=== PATIENT | male | born 1960 | race Caucasian/White ===

== ENCOUNTER 2017-01-06 13:38 | Inpatient (IN) | payer OTHER ==
[2017-01-06 14:48] VITALS: BMI 25.4
--- NOTE | 2017-01-06 15:13 | HP ---
CIWA Score - CIWA Score Nausea/Vomitin Muscle Tremors: 3 Anxiety: 3 Agitation: 3 Paroxysmal Sweats: 3 Orientation: 0-Oriented Tacttile Disturbances: 2-Mild Itch/Numbness/Burn Auditory Disturbances: 0-None Visual Disturbances: 0-None Headache: 0-None Present CIWA-Ar Total Score: 17 Admission ROS [facility] - HPI Chief Complaint: I need help I have lost everything . Allergies/Adverse Reactions: Allergies Allergy/AdvReac Type Severity Reaction Status Date / Time No Known Allergies Allergy Verified 01/06/17 15:20 History of Present Illness: 56 y/o m pt with a h/o chronic alcoholism seeking detox . Exam Limitations: No Limitations - Ebola screening Have you traveled outside of the country in the last 21 days: No (N) Have you had contact with anyone from an Ebola affected area: No Have you been sick,other than usual withdrawal symptoms: No Do you have a fever: No - Review of Systems Constitutional: Night Sweats, Changes in sleep, Unintentional Wgt. Loss (30lbs x 1 months) EENT: reports: Blurred Vision (uses ccntacts) Respiratory: reports: No Symptoms reported Cardiac: reports: No Symptoms Reported GI: reports: No Symptoms Reported, Nausea : reports: No Symptoms Reported Musculoskeletal: reports: Joint Pain, Muscle Pain Neuro: reports: No Symptoms reported Endocrine: reports: No Symptoms Reported Hematology: reports: No Symptoms Reported Psychiatric: reports: No Sypmtoms Reported Other Systems: Reviewed and Negative Patient History - Patient Medical History Hx Anemia: No Hx Asthma: No Hx Chronic Obstructive Pulmonary Disease (COPD): No Hx Cancer: No Hx Cardiac Disorders: No Hx Congestive Heart Failure: No Hx Hypertension: No Hx Hypercholesterolemia: No Hx Pacemaker: No HX Cerebrovascular Accident: No Hx Seizures: No Hx Dementia: No Hx Diabetes: No Hx Gastrointestinal Disorders: No Hx Liver Disease: No Hx Genitourinary Disorders: No Hx Sexually Transmitted Disorders: No Hx Renal Disease (ESRD): No Hx Thyroid Disease: No Hx Human Immunodeficiency Virus (HIV): No Hx Hepatitis C: Yes (treated 2004- non detectable ) Hx Depression: No Hx Suicide Attempt: No Hx Bipolar Disorder: No Hx Schizophrenia: No - Patient Surgical History Past Surgical History: Yes Hx Abdominal Surgery: Yes (1984- rt hernia repair ) Other Surgical History: 2006- laminectomy - PPD History Documented Results: Negative w/o proof PPD to be Administered?: Yes - Reproductive History Patient is a Female of Child Bearing Age (11 -55 yrs old): No - Smoking Cessation Smoking history: Never smoked Have you smoked in the past 12 months: No Aproximately how many cigarettes per day: 0 Cigars Per Day: 0 Hx Chewing Tobacco Use: No Initiated information on smoking cessation: No 'Breaking Loose' booklet given: 01/06/17 - Substance & Tx. History Hx Alcohol Use: Yes Hx Substance Use: No Substance Use Type: Alcohol Hx Substance Use Treatment: Yes ([facility] ) - Substances Abused Alcohol Route: Oral Frequency: Daily Amount used: vodka 1 qt/d Age of first use: 16 Date of Last Use: 01/06/17 Family Disease History - Family Disease History Family Disease History: Diabetes: Father Admission Physical Exam [facility] - Vital Signs Vital Signs: Vital Signs - 24 hr 01/06/17 14:46 Temperature 97.5 F L Pulse Rate 87 Respiratory 20 Rate Blood Pressure 145/88 - Physical General Appearance: Yes: Appropriately Dressed, Irritable, Anxious HEENTM: Yes: EOMI, Hearing grossly Normal, Normocephalic, Normal Voice, JESSICA Respiratory: Yes: Chest Non-Tender, Lungs Clear, Normal Breath Sounds, No Respiratory Distress Neck: Yes: Supple, Trachea in good position Breast: Yes: Within Normal Limits Cardiology: Yes: Regular Rhythm, Regular Rate, S1, S2 Genitourinary: Yes: Frequency Back: Yes: Decreased Range of Motion, Muscle Spasm Musculoskeletal: Yes: Back pain, Joint Stiffness (left elbow decreased rom , abrasion with d/c), Muscle Pain Extremities: Yes: Tremors Neurological: Yes: bilingual medical receptionist II-XII NML intact, Fully Oriented, Alert, Motor Strength 5/5, Normal Response Integumentary: Yes: Moist Lymphatic: Yes: Within Normal Limits - Diagnostic (1) Alcohol dependence with uncomplicated withdrawal Current Visit: Yes Status: Chronic (2) Chronic low back pain with left-sided sciatica Current Visit: Yes Status: Chronic Qualifiers: Back pain laterality: left Qualified Code(s): M54.42 - Lumbago with sciatica, left side; G89.29 - Other chronic pain (3) Weight loss Current Visit: Yes Status: Acute (4) Abrasion of elbow, left, infected Current Visit: Yes Status: Acute Cleared for Admission [facility] - Detox or Rehab [facility] Level of Care: Medically Managed Detox Regimen/Protocol: Librium [facility] Breath Alcohol Content Breath Alcohol Content: 0.186 Urine Drug Screen - Results Drug Screen Negative: No Urine Drug Screen Results: BZO-Benzodiazepines, TCA-Tricyclic Antidepress
[2017-01-06] MEDS ORDERED: P-EPHED 60MG/TRIPROLIDI 2.5MG TABLET PO PRN (15:33)
[2017-01-06] MEDS ORDERED: MAGNESIUM HYDROX 2400MG/30ML ORAL SUSPENSION 30 ML CUP PO PRN (15:33)
[2017-01-06] MEDS ORDERED: ACETAMINOPHEN 325 MG TABLET (FP) PO PRN (15:33)
[2017-01-06] MEDS ORDERED: MAGNESIUM CITRATE 300 ML BOTTLE PO PRN (15:33)
[2017-01-06] MEDS ORDERED: guaiFENesin/D-METHORPHAN HB 10 ML UNIT-DOSE CUPS PO PRN (15:33)
[2017-01-06] MEDS ORDERED: IBUPROFEN 400 MG TABLET (FP) PO PRN (15:33)
[2017-01-06] MEDS ORDERED: MENTHOL/PHENOL 1 EACH UD MM PRN (15:33)
[2017-01-06] MEDS ORDERED: LOPERAMIDE HCL 2 MG CAPSULE PO PRN (15:33)
[2017-01-06] MEDS ORDERED: chlordiazePOXIDE HCL 25 MG CAPSULE PO ONE (16:30)
[2017-01-06] MEDS: CEPHALEXIN MONOHYDRATE 500 MG CAPSULE (UD) PO SCH ×2 (17:58→23:34)
[2017-01-06] MEDS: chlordiazePOXIDE HCL 25 MG CAPSULE PO PRN (18:04)
[2017-01-06] MEDS: MAG HYDROX/AL HYDROX/SIMETH 30 ML UNIT-DOSE CUP PO PRN (19:13)
[2017-01-06 21:23] LABS: URINE APPEARANCE CLEAR; URINE BILIRUBIN NEGATIVE (NEGATIVE); URINE COLOR COLORLESS; URINE GLUCOSE (UA) NEGATIVE (NEGATIVE); URINE KETONE NEGATIVE (NEGATIVE); URINE LEUK ESTERASE NEGATIVE (NEGATIVE); URINE NITRITE NEGATIVE (NEGATIVE); URINE PROTEIN NEGATIVE (NEGATIVE); URINE UROBILINOGEN NEGATIVE E.U./dl (0.2-1.0)
[2017-01-06 22:01] LABS: URINE BLOOD 1+ (NEGATIVE)
[2017-01-06] MEDS: THIAMINE HCL 100 MG TABLET (FP) PO SCH (22:06)
[2017-01-06] MEDS: chlordiazePOXIDE HCL 25 MG CAPSULE PO SCH (22:07)
[2017-01-06] MEDS: diphenhydrAMINE HCL 50 MG CAPSULE PO PRN (22:07)
[2017-01-06 22:42] LABS: HIV 1 & 2 AB NEGATIVE; HIV 1 AGp24 NEGATIVE
[2017-01-07] MEDS: diphenhydrAMINE HCL 50 MG CAPSULE PO PRN ×2 (00:28→22:31)
[2017-01-07] MEDS: chlordiazePOXIDE HCL 25 MG CAPSULE PO PRN (00:28)
[2017-01-07] MEDS: chlordiazePOXIDE HCL 25 MG CAPSULE PO SCH ×4 (05:36→22:29)
[2017-01-07] MEDS: CEPHALEXIN MONOHYDRATE 500 MG CAPSULE (UD) PO SCH ×4 (05:36→23:05)
[2017-01-07] MEDS: CYCLOBENZAPRINE HCL 10 MG TABLET (FP) PO PRN (05:36)
[2017-01-07 09:49] LABS: MCH 29.5 pg (25.7-33.7); MCHC 33.2 g/dl (32.0-35.9); MEAN PLT VOLUME 8.1 fl (7.5-11.1); PLATELET COUNT 284 K/MM3 (134-434); RDW 13.5 % (11.9-15.9); WHITE BLOOD COUNT 5.5 K/mm3 (4.0-10.0)
--- NOTE | 2017-01-07 10:32 | PN ---
[facility] CIWA - CIWA Score Nausea/Vomitin-No Nausea/No Vomiting Muscle Tremors: 4-Moderate,w/Arms Extend Anxiety: 4-Mod. Anxious/Guarded Agitation: 4-Moderately Restless Paroxysmal Sweats: 1-Minimal Palms Moist Orientation: 0-Oriented Tacttile Disturbances: 3-Moderate Itch/Numb/Burn Auditory Disturbances: 0-None Visual Disturbances: 0-None Headache: 0-None Present CIWA-Ar Total Score: 16 S Progress Note (SOAP) Subjective: TREMORS,SWEATS, ANXIETY,INTERMITTENT SLEEP Objective: 01/07/17 10:32 Vital Signs Temperature 95.8 F L 01/07/17 06:46 Pulse Rate 66 01/07/17 06:46 Respiratory Rate 18 01/07/17 06:46 Blood Pressure 122/78 01/07/17 06:46 O2 Sat by Pulse Oximetry (%) Laboratory Last Values WBC 5.5 K/mm3 (4.0-10.0) 01/07/17 06:00 RBC 4.73 M/mm3 (4.00-5.60) 01/07/17 06:00 Hgb 14.0 GM/dL (11.7-16.9) 01/07/17 06:00 Hct 42.1 % (35.4-49) 01/07/17 06:00 MCV 89.0 fl (80-96) 01/07/17 06:00 MCHC 33.2 g/dl (32.0-35.9) 01/07/17 06:00 RDW 13.5 % (11.9-15.9) 01/07/17 06:00 Plt Count 284 K/MM3 (134-434) 01/07/17 06:00 MPV 8.1 fl (7.5-11.1) 01/07/17 06:00 Sodium 141 mmol/L (136-145) 01/07/17 06:00 Potassium 3.9 mmol/L (3.5-5.1) 01/07/17 06:00 Chloride 105 mmol/L (98-107) 01/07/17 06:00 Urine Color Colorless 01/06/17 18:03 Urine Appearance Clear 01/06/17 18:03 Urine pH 5.0 (5.0-8.0) 01/06/17 18:03 Urine Protein Negative (NEGATIVE) 01/06/17 18:03 Urine Glucose (UA) Negative (NEGATIVE) 01/06/17 18:03 Urine Ketones Negative (NEGATIVE) 01/06/17 18:03 Urine Blood 1+ (NEGATIVE) H 01/06/17 18:03 Urine Nitrite Negative (NEGATIVE) 01/06/17 18:03 Urine Bilirubin Negative (NEGATIVE) 01/06/17 18:03 Urine Urobilinogen Negative E.U./dl (0.2-1.0) 01/06/17 18:03 Ur Leukocyte Esterase Negative (NEGATIVE) 01/06/17 18:03 HIV 1&2 Antibody Screen Negative 01/06/17 15:00 HIV P24 Antigen Negative 01/06/17 15:00 Assessment: 01/07/17 10:32 WITHDRAWAL SX Plan: CONTINUE DETOX
[2017-01-07] MEDS: PRENATAL VITAMINS W/ FOLIC ACID TABLET (FP) PO SCH (10:36)
--- NOTE | 2017-01-07 11:18 | EKG ---
Test Reason : Blood Pressure : / mmHG Vent. Rate : 084 BPM Atrial Rate : 084 BPM P-R Int : 146 ms QRS Dur : 090 ms QT Int : 390 ms P-R-T Axes : 054 043 060 degrees QTc Int : 460 ms NORMAL SINUS RHYTHM POSSIBLE LEFT ATRIAL ENLARGEMENT BORDERLINE ECG NO PREVIOUS ECGS AVAILABLE Confirmed by SLIM PARR, LUZMA ([id number]) on 01/07/2017 11:18:02 AM Referred By: Confirmed By:LUZMA SMALLS MD
[2017-01-07] MEDS: MAG HYDROX/AL HYDROX/SIMETH 30 ML UNIT-DOSE CUP PO PRN (12:37)
[2017-01-07 14:58] LABS: URINE MUCUS RARE
[2017-01-07] MEDS: THIAMINE HCL 100 MG TABLET (FP) PO SCH (22:29)
[2017-01-08] MEDS: diphenhydrAMINE HCL 50 MG CAPSULE PO PRN (00:43)
[2017-01-08] MEDS: CYCLOBENZAPRINE HCL 10 MG TABLET (FP) PO PRN (00:43)
[2017-01-08] MEDS: chlordiazePOXIDE HCL 25 MG CAPSULE PO PRN (00:43)
[2017-01-08] MEDS: chlordiazePOXIDE HCL 25 MG CAPSULE PO SCH ×3 (06:06→17:38)
[2017-01-08] MEDS: CEPHALEXIN MONOHYDRATE 500 MG CAPSULE (UD) PO SCH ×4 (06:06→23:07)
[2017-01-08] MEDS: PRENATAL VITAMINS W/ FOLIC ACID TABLET (FP) PO SCH (10:39)
--- NOTE | 2017-01-08 11:17 | PN ---
[facility] CIWA - CIWA Score Nausea/Vomitin-No Nausea/No Vomiting Muscle Tremors: 4-Moderate,w/Arms Extend Anxiety: 4-Mod. Anxious/Guarded Agitation: 4-Moderately Restless Paroxysmal Sweats: 1-Minimal Palms Moist Orientation: 0-Oriented Tacttile Disturbances: 3-Moderate Itch/Numb/Burn Auditory Disturbances: 0-None Visual Disturbances: 0-None Headache: 0-None Present CIWA-Ar Total Score: 16 S Progress Note (SOAP) Subjective: ANXIETY,TREMORS,INSOMNIA.--BENADRYL NOT EFFECTIVE. Objective: 01/08/17 11:16 Vital Signs Temperature 97.8 F 01/08/17 09:48 Pulse Rate 81 01/08/17 09:48 Respiratory Rate 18 01/08/17 09:48 Blood Pressure 145/81 01/08/17 09:48 O2 Sat by Pulse Oximetry (%) Laboratory Last Values WBC 5.5 K/mm3 (4.0-10.0) 01/07/17 06:00 RBC 4.73 M/mm3 (4.00-5.60) 01/07/17 06:00 Hgb 14.0 GM/dL (11.7-16.9) 01/07/17 06:00 Hct 42.1 % (35.4-49) 01/07/17 06:00 MCV 89.0 fl (80-96) 01/07/17 06:00 MCHC 33.2 g/dl (32.0-35.9) 01/07/17 06:00 RDW 13.5 % (11.9-15.9) 01/07/17 06:00 Plt Count 284 K/MM3 (134-434) 01/07/17 06:00 MPV 8.1 fl (7.5-11.1) 01/07/17 06:00 Sodium 141 mmol/L (136-145) 01/07/17 06:00 Potassium 3.9 mmol/L (3.5-5.1) 01/07/17 06:00 Chloride 105 mmol/L (98-107) 01/07/17 06:00 Carbon Dioxide 21 mmol/L (21-32) 01/07/17 06:00 Anion Gap 15 (8-16) 01/07/17 06:00 BUN 16 mg/dL (7-18) 01/07/17 06:00 Creatinine 0.6 mg/dL (0.7-1.3) L 01/07/17 06:00 Creat Clearance w eGFR > 60 (>60) 01/07/17 06:00 Random Glucose 73 mg/dL (74-106) L 01/07/17 06:00 Calcium 8.8 mg/dL (8.5-10.1) 01/07/17 06:00 Total Bilirubin 0.5 mg/dL (0.2-1.0) 01/07/17 06:00 AST 28 U/L (15-37) 01/07/17 06:00 ALT 38 U/L (12-78) 01/07/17 06:00 Alkaline Phosphatase 113 U/L (45-117) 01/07/17 06:00 Total Protein 7.7 g/dl (6.4-8.2) 01/07/17 06:00 Albumin 4.5 g/dl (3.4-5.0) 01/07/17 06:00 Urine Color Colorless 01/06/17 18:03 Urine Appearance Clear 01/06/17 18:03 Urine pH 5.0 (5.0-8.0) 01/06/17 18:03 Ur Specific [place] <= 1.005 (1.005-1.025) 01/06/17 18:03 Urine Protein Negative (NEGATIVE) 01/06/17 18:03 Urine Glucose (UA) Negative (NEGATIVE) 01/06/17 18:03 Urine Ketones Negative (NEGATIVE) 01/06/17 18:03 Urine Blood 1+ (NEGATIVE) H 01/06/17 18:03 Urine Nitrite Negative (NEGATIVE) 01/06/17 18:03 Urine Bilirubin Negative (NEGATIVE) 01/06/17 18:03 Urine Urobilinogen Negative E.U./dl (0.2-1.0) 01/06/17 18:03 Ur Leukocyte Esterase Negative (NEGATIVE) 01/06/17 18:03 Urine RBC None /hpf (0-3) 01/06/17 18:03 Urine WBC None /hpf (3-5) 01/06/17 18:03 Urine Mucus Rare 01/06/17 18:03 RPR Titer Nonreactive (NONREACTIVE) 01/07/17 06:00 HIV 1&2 Antibody Screen Negative 01/06/17 15:00 HIV P24 Antigen Negative 01/06/17 15:00 Assessment: 01/08/17 11:16 WITHDRAWAL SX Plan: CONTINUE DETOX [facility] DIRECTED
[2017-01-08] MEDS ORDERED: chlordiazePOXIDE HCL 25 MG CAPSULE PO ONE (14:00)
[2017-01-08] MEDS: MAG HYDROX/AL HYDROX/SIMETH 30 ML UNIT-DOSE CUP PO PRN (17:41)
[2017-01-08] MEDS: THIAMINE HCL 100 MG TABLET (FP) PO SCH (22:22)
[2017-01-08] MEDS: chlordiazePOXIDE 5 MG CAPSULE PO SCH (22:22)
[2017-01-08] MEDS: hydrOXYzine PAMOATE 50 MG CAPSULE (FP) PO PRN (22:24)
[2017-01-09] MEDS: chlordiazePOXIDE HCL 25 MG CAPSULE PO PRN ×2 (00:23→14:42)
[2017-01-09] MEDS: chlordiazePOXIDE 5 MG CAPSULE PO SCH ×3 (05:53→17:21)
[2017-01-09] MEDS: CEPHALEXIN MONOHYDRATE 500 MG CAPSULE (UD) PO SCH ×4 (05:53→23:48)
[2017-01-09] MEDS: MAG HYDROX/AL HYDROX/SIMETH 30 ML UNIT-DOSE CUP PO PRN (05:54)
[2017-01-09] MEDS ORDERED: BACITRACIN 30 GM TUBE TOPICAL OINTMENT TP SCH (10:00)
--- NOTE | 2017-01-09 10:11 | CONSULT ---
[facility] Psychiatric Consult - Data Date of interview: 01/09/17 Admission source: [facility] Identifying data: This is 56 years old male with no psychiatric hospitalization history intoxicated with: Alcohol and Benzodiazepins Substance Abuse History: - Results. Drug Screen Negative: No. Urine Drug Screen Results: BZO-Benzodiazepines, TCA-Tricyclic Antidepress. - Smoking Cessation. Smoking history: Never smoked. Have you smoked in the past 12 months: No. Aproximately how many cigarettes per day: 0. Cigars Per Day: 0. Hx Chewing Tobacco Use: No. Initiated information on smoking cessation: No. ' Breaking Loose' booklet given: 01/06/17. - Substance & Tx. History. Hx Alcohol Use: Yes. Hx Substance Use: No. Substance Use Type: Alcohol. Hx Substance Use Treatment: Yes ( [facility] ). - Substances Abused. Alcohol. Route: Oral. Frequency: Daily. Amount used: vodka 1 qt/d. Age of first use: 16. Date of Last Use: 01/06/17 Medical History: LBP, Weight loss history Psychiatric History: Patient reports no psct psychiatric history, reports insomnia, reports taking prior to admission with good response Trazodone 50mg po qhs Physical/Sexual Abuse/Trauma History: Denies Additional Comment: Trazodone 50mg po qhs. - Results. Drug Screen Negative: No. Urine Drug Screen Results: BZO-Benzodiazepines, TCA-Tricyclic Antidepress Mental Status Exam - Mental Status Exam Alert and Oriented to: Person Cognitive Function: Fair Patient Appearance: Unkempt Mood: Anxious Affect: Mood Congruent Patient Behavior: Cooperative Speech Pattern: Appropriate Voice Loudness: Normal Thought Process: Goal Oriented Thought Disorder: Being Controlled Hallucinations: Denies Suicidal Ideation: Denies Homicidal Ideation: Denies Insight/Judgement: Fair Sleep: Difficulty falling asleep Appetite: Weight loss Muscle strength/Tone: Normal Gait/Station: Normal Additional Comments: Trazodone 50mg po qhs Psychiatric Findings - Problem List ([place] 1, 2,3) (1) Alcohol dependence with uncomplicated withdrawal Current Visit: Yes Status: Chronic (2) Alcohol dependence Current Visit: Yes Status: Acute (3) Benzodiazepine abuse Current Visit: Yes Status: Acute (4) Drug-induced mood disorder Current Visit: Yes Status: Suspected - Initial Treatment Plan Initial Treatment Plan: Trazodone 50mg po qhs
[2017-01-09] MEDS: PRENATAL VITAMINS W/ FOLIC ACID TABLET (FP) PO SCH (10:32)
[2017-01-09] MEDS: BACITRACIN 0.9 GM PACKET TP SCH ×2 (10:33→22:24)
--- NOTE | 2017-01-09 11:33 | PN ---
[facility] Progress Note (SOAP) Subjective: ANXIETY SWEATS,INTERMITTENT SLEEP, VISTAR[facility] 100 MG NOT EFFECTIVE. Objective: 01/09/17 11:32 Vital Signs Temperature 96.4 F L 01/09/17 09:29 Pulse Rate 79 01/09/17 09:29 Respiratory Rate 18 01/09/17 09:29 Blood Pressure 124/87 01/09/17 09:29 O2 Sat by Pulse Oximetry (%) Laboratory Last Values WBC 5.5 K/mm3 (4.0-10.0) 01/07/17 06:00 RBC 4.73 M/mm3 (4.00-5.60) 01/07/17 06:00 Hgb 14.0 GM/dL (11.7-16.9) 01/07/17 06:00 Hct 42.1 % (35.4-49) 01/07/17 06:00 MCV 89.0 fl (80-96) 01/07/17 06:00 MCHC 33.2 g/dl (32.0-35.9) 01/07/17 06:00 RDW 13.5 % (11.9-15.9) 01/07/17 06:00 Plt Count 284 K/MM3 (134-434) 01/07/17 06:00 MPV 8.1 fl (7.5-11.1) 01/07/17 06:00 Sodium 141 mmol/L (136-145) 01/07/17 06:00 Potassium 3.9 mmol/L (3.5-5.1) 01/07/17 06:00 Chloride 105 mmol/L (98-107) 01/07/17 06:00 Carbon Dioxide 21 mmol/L (21-32) 01/07/17 06:00 Anion Gap 15 (8-16) 01/07/17 06:00 BUN 16 mg/dL (7-18) 01/07/17 06:00 Creatinine 0.6 mg/dL (0.7-1.3) L 01/07/17 06:00 Creat Clearance w eGFR > 60 (>60) 01/07/17 06:00 Random Glucose 73 mg/dL (74-106) L 01/07/17 06:00 Calcium 8.8 mg/dL (8.5-10.1) 01/07/17 06:00 Total Bilirubin 0.5 mg/dL (0.2-1.0) 01/07/17 06:00 AST 28 U/L (15-37) 01/07/17 06:00 ALT 38 U/L (12-78) 01/07/17 06:00 Alkaline Phosphatase 113 U/L (45-117) 01/07/17 06:00 Total Protein 7.7 g/dl (6.4-8.2) 01/07/17 06:00 Albumin 4.5 g/dl (3.4-5.0) 01/07/17 06:00 Urine Color Colorless 01/06/17 18:03 Urine Appearance Clear 01/06/17 18:03 Urine pH 5.0 (5.0-8.0) 01/06/17 18:03 Ur Specific [place] <= 1.005 (1.005-1.025) 01/06/17 18:03 Urine Protein Negative (NEGATIVE) 01/06/17 18:03 Urine Glucose (UA) Negative (NEGATIVE) 01/06/17 18:03 Urine Ketones Negative (NEGATIVE) 01/06/17 18:03 Urine Blood 1+ (NEGATIVE) H 01/06/17 18:03 Urine Nitrite Negative (NEGATIVE) 01/06/17 18:03 Urine Bilirubin Negative (NEGATIVE) 01/06/17 18:03 Urine Urobilinogen Negative E.U./dl (0.2-1.0) 01/06/17 18:03 Ur Leukocyte Esterase Negative (NEGATIVE) 01/06/17 18:03 Urine RBC None /hpf (0-3) 01/06/17 18:03 Urine WBC None /hpf (3-5) 01/06/17 18:03 Urine Mucus Rare 01/06/17 18:03 RPR Titer Nonreactive (NONREACTIVE) 01/07/17 06:00 HIV 1&2 Antibody Screen Negative 01/06/17 15:00 HIV P24 Antigen Negative 01/06/17 15:00 Assessment: 01/09/17 11:32 WITHDRAWAL SX Plan: CONTINUE DETOX PSYCH CONSULT RE:INSOMNIA
[2017-01-09] MEDS: CYCLOBENZAPRINE HCL 10 MG TABLET (FP) PO PRN (17:24)
[2017-01-09] MEDS ORDERED: traZODone HCL 50 MG TABLET (FP) PO SCH (22:00)
[2017-01-09] MEDS: chlordiazePOXIDE HCL 10 MG CAPSULE PO SCH (22:24)
[2017-01-09] MEDS: THIAMINE HCL 100 MG TABLET (FP) PO SCH (22:24)
[2017-01-09] MEDS: hydrOXYzine PAMOATE 50 MG CAPSULE (FP) PO PRN (22:25)
[2017-01-10] MEDS: diphenhydrAMINE HCL 50 MG CAPSULE PO PRN (01:12)
[2017-01-10] MEDS: CEPHALEXIN MONOHYDRATE 500 MG CAPSULE (UD) PO SCH ×2 (06:19→13:18)
[2017-01-10] MEDS: chlordiazePOXIDE HCL 10 MG CAPSULE PO SCH ×2 (06:19→10:56)
[2017-01-10] MEDS: MAG HYDROX/AL HYDROX/SIMETH 30 ML UNIT-DOSE CUP PO PRN (06:20)
[2017-01-10] MEDS: PRENATAL VITAMINS W/ FOLIC ACID TABLET (FP) PO SCH (10:56)
[2017-01-10] MEDS: BACITRACIN 0.9 GM PACKET TP SCH (10:58)
--- NOTE | 2017-01-10 11:42 | PN ---
[facility] Progress Note (SOAP) Subjective: ANXIETY,SWEATS,SLIGHT TREMORS. Objective: 01/10/17 11:42 Vital Signs Temperature 96.7 F L 01/10/17 10:23 Pulse Rate 90 01/10/17 10:23 Respiratory Rate 20 01/10/17 10:23 Blood Pressure 111/71 01/10/17 10:23 O2 Sat by Pulse Oximetry (%) Assessment: 01/10/17 11:42 WITHDRAWAL SX Plan: CONTINUE DETOX
--- NOTE | 2017-01-10 12:24 | DS ---
[facility] Detox Discharge Summary Admission Date: 01/06/17 - History Present History: Alcohol Dependence Additional Comments: DETOX COMPLETED Pertinent Past History: INFECTED WOUND LEFT ELBOW - Physical Exam Results Vital Signs: Vital Signs Temperature 96.7 F L 01/10/17 10:23 Pulse Rate 90 01/10/17 10:23 Respiratory Rate 20 01/10/17 10:23 Blood Pressure 111/71 01/10/17 10:23 O2 Sat by Pulse Oximetry (%) Pertinent Admission Physical Exam Findings: WITHDRAWAL SX - Treatment Hospital Course: Detox Protocol Followed, Detoxed Safely, Responded well, Discharged Condition Good, Rehab Referral Accepted Patient has Accepted a Rehab Referral to: [facility] - Medication Discharge Medications: Ambulatory Orders Trazodone HCl 50 mg PO HS #30 tablet 01/09/17 Cephalexin Monohydrate [Keflex -] 500 mg PO Q6HPO #20 cap 01/10/17 - Diagnosis (1) Abrasion of elbow, left, infected Current Visit: Yes Status: Acute (2) Alcohol dependence with uncomplicated withdrawal Current Visit: Yes Status: Chronic (3) Chronic low back pain with left-sided sciatica Current Visit: Yes Status: Chronic Qualifiers: Back pain laterality: left Qualified Code(s): M54.42 - Lumbago with sciatica, left side; G89.29 - Other chronic pain - AMA Did Patient Leave Against Medical Advice: No
[2017-01-10 14:16] VITALS: BP 132/85; PULSE 72; TEMP 96
== END 2017-01-10 15:20 | disposition home or self-care (01) | DRG 897 ==
LOC: YASAS 13:38 → Y3N 15:59
PROVIDERS: ADMIT Internal Medicine Addiction Medicine; ATTEND Internal Medicine Addiction Medicine
PROC: HZ2ZZZZ Detoxification Services for Substance Abuse Treatment (ICD-10-PCS; principal; 2017-01-10)
DX: F19.230 Other psychoactive substance dependence with withdrawal, uncomplicated (principal); F10.230 Alcohol dependence with withdrawal, uncomplicated; F13.10 Sedative, hypnotic or anxiolytic abuse, uncomplicated; F19.24 Other psychoactive substance dependence with psychoactive substance-induced mood disorder; B18.2 Chronic viral hepatitis C; M54.42 Lumbago with sciatica, left side; G89.29 Other chronic pain; R63.4 Abnormal weight loss; Z68.25 Body mass index [BMI] 25.0-25.9, adult; S50.312A Abrasion of left elbow, initial encounter; X58.XXXA Exposure to other specified factors, initial encounter; Y93.9 Activity, unspecified
CPT/HCPCS: 36415; 80053; 81003; 81015; 85027; 86593; 87389; 93005; 93010

== ENCOUNTER 2018-06-08 22:43 | Emergency (ER) | payer OTHER ==
[2018-06-08 22:59] VITALS: BMI 25.8
[2018-06-09] MEDS ORDERED: methylPREDNISolone NA SUCC 125 MG/2 ML VIAL IVPUSH ONE (00:54)
[2018-06-09] MEDS ORDERED: methylPREDNISolone NA SUCC 125 MG/2 ML VIAL ONE (01:08)
--- NOTE | 2018-06-09 01:09 | PDOC ---
History of Present Illness - General Chief Complaint: Allergic Reaction Stated Complaint: RASH Time Seen by Provider: 06/09/18 00:51 - History of Present Illness Initial Comments: 06/09/18 00:54 58 M with h/o ETOH abuse presents to ED with rash. Pt states that he first noticed it on his arms about 4 hours ago. He states that it is itchy, not painful. It rapidly spread to his neck, trunk, and legs as well. Pt denies any sores. Denies any F/C. Denies CP/SOB. Denies tongue or lip swelling. No difficulty breathing or voice changes. Pt does not take any medications. Did not eat any new foods. No known allergies in the past. No new detergents or soaps. Pt is currently admitted to [facility] rehab for ETOH detox. Past History - Past Medical History Allergies/Adverse Reactions: Allergies Allergy/AdvReac Type Severity Reaction Status Date / Time No Known Allergies Allergy Verified 06/08/18 20:37 Home Medications: Ambulatory Orders Gabapentin [Neurontin -] 300 mg PO Q8H 06/08/18 Omeprazole 20 mg PO DAILY 06/08/18 Atorvastatin Ca [Lipitor] 20 mg PO HS 06/09/18 Diclofenac Sodium [Voltaren] 100 gm TP 06/09/18 Anemia: No Asthma: No Cancer: No Cardiac Disorders: No CVA: No COPD: No CHF: No Dementia: No Diabetes: No GI Disorders: No Disorders: No HTN: No Hypercholesterolemia: No Kidney Stones: No Liver Disease: Yes (Hep C) Seizures: No Thyroid Disease: No - Surgical History Abdominal Surgery: Yes (1984- rt hernia repair ) - Reproductive History Testicular Surgery: No - Suicide/Smoking/Psychosocial Hx Smoking History: Never smoked Have you smoked in the past 12 months: No Number of Cigarettes Smoked Daily: 0 Cigars Per Day: 0 'Breaking Loose' booklet given: 01/06/17 Hx Alcohol Use: Yes Drug/Substance Use Hx: Yes (Cocaine last pm) Substance Use Type: Alcohol, Cocaine Hx Substance Use Treatment: Yes ([place], [place]) Review of Systems - Review of Systems Comments:: 06/09/18 00:55 "GENERAL/CONSTITUTIONAL: No fever or chills. No weakness. HEAD, EYES, EARS, NOSE AND THROAT: No change in vision. No ear pain or discharge. No sore throat. CARDIOVASCULAR: No chest pain or shortness of breath. RESPIRATORY: No cough, wheezing, or hemoptysis. GASTROINTESTINAL: No nausea, vomiting, diarrhea or constipation. GENITOURINARY: No dysuria, frequency, or change in urination. MUSCULOSKELETAL: No joint or muscle swelling or pain. No neck or back pain. SKIN: + rash NEUROLOGIC: No headache, vertigo, loss of consciousness, or change in strength/ sensation. ENDOCRINE: No increased thirst. No abnormal weight change. HEMATOLOGIC/LYMPHATIC: No anemia, easy bleeding, or history of blood clots. ALLERGIC/IMMUNOLOGIC: No hives or skin allergy. *Physical Exam - Vital Signs Last Vital Signs Temp Pulse Resp BP Pulse Ox 97.9 F 77 20 122/77 100 06/08/18 22:48 06/08/18 22:48 06/08/18 22:48 06/08/18 22:48 06/08/18 22:48 - Physical Exam Comments: 06/09/18 00:56 GENERAL: Awake, alert, and fully oriented, in no acute distress. HEAD: No signs of trauma EYES: PERRLA, EOMI, sclera anicteric, conjunctiva clear ENT: Auricles normal inspection, hearing grossly normal, nares patent, oropharynx clear without exudates. Moist mucosa NECK: Nontender, no stepoffs, Normal ROM, supple, no lymphadenopathy, JVD, or masses LUNGS: No stridor, Breath sounds equal, clear to auscultation bilaterally. No wheezes, and no crackles HEART: Regular rate and rhythm, normal S1 and S2, no murmurs, rubs or gallops ABDOMEN: Soft, nontender, normoactive bowel sounds. No guarding, no rebound. No masses EXTREMITIES: Normal range of motion, no edema. No clubbing or cyanosis. No cords, erythema, or tenderness NEUROLOGICAL: Cranial nerves II through XII intact. 5/5 strength and sensation in all extremities, Normal speech, normal gait, normal cerebellar function SKIN: + pruritic maculopapular rash to arms, legs, chest, abdomen, back, and neck, no tongue or lip swelling Medical Decision Making - Medical Decision Making 06/09/18 01:09 58 M with urticarial rash. Likely allergic reaction but unclear what trigger is. No signs of anaphylaxis, no sign of airway compromise. - Steroids, benadryl - Reassess 06/09/18 02:04 Pt reassessed - now has almost complete resolution of his rash. Pt states he feels much improved. Airway remains intact, lungs clear. Pt is well appearing, with normal vitals. Clinically stable for DC at this time. I discussed the physical exam findings, ancillary test results and final diagnoses with the patient. I answered all of the patient's questions. The patient was satisfied with the care received and felt comfortable with the discharge plan and treatment plan. The patient agrees to follow up with the primary care physician within 24-72 hours. *DC/Admit/Observation/Transfer Diagnosis at time of Disposition: Allergic reaction - Discharge Dispostion Disposition: HOME - Referrals Referrals: Vernon Beck MD, [Primary Care Provider] - Jayda Benjamin [Non Staff, Medical] - - Patient Instructions Printed Discharge Instructions: DI for General Allergic Reactions Additional Instructions: You had an allergic reaction today, though it is unclear what the trigger was. Take benadryl every 8 hours as needed for itching. Take the prednisone once daily as prescribed for 4 more days. Call the number provided to make an appointment with an pole truck driver for allergy testing. If you experience worsening, rash, swelling of your face or tongue, difficulty breathing, or any other concerning symptoms, return to the ER immediately. - Post Discharge Activity - Attestations Physician Attestion: 06/09/18 02:05 I, Dr. Marquis Carias MD, attest that this document has been prepared under my direction and personally reviewed by me in its entirety. I further attest, that it accurately reflects all work, treatment, procedures and medical decision -making performed by me.
[2018-06-09 03:01] VITALS: BP 110/78; PULSE 89; TEMP 98.5
== END 2018-06-09 02:59 | disposition home or self-care (01) ==
LOC: JER 22:43
PROC: 3E033GC Introduction of Other Therapeutic Substance into Peripheral Vein, Percutaneous Approach (ICD-10-PCS; principal; 2018-06-08)
PROC: 3E0333Z Introduction of Anti-inflammatory into Peripheral Vein, Percutaneous Approach (ICD-10-PCS; 2018-06-08)
DX: T78.40XA Allergy, unspecified, initial encounter (principal); L50.0 Allergic urticaria
CPT/HCPCS: 99282-25

== ENCOUNTER 2018-06-09 04:55 | Inpatient (IN) | payer OTHER ==
--- NOTE | 2018-06-09 05:05 | HP ---
CIWA Score - CIWA Score Nausea/Vomitin Muscle Tremors: 4-Moderate,w/Arms Extend Anxiety: 4-Mod. Anxious/Guarded Agitation: 4-Moderately Restless Paroxysmal Sweats: 1-Minimal Palms Moist Orientation: 0-Oriented Tacttile Disturbances: 0-None Auditory Disturbances: 0-None Visual Disturbances: 0-None Headache: 0-None Present CIWA-Ar Total Score: 16 Admission ROS S - HPI Chief Complaint: Alcohol withdrawal symptoms Allergies/Adverse Reactions: Allergies Allergy/AdvReac Type Severity Reaction Status Date / Time No Known Allergies Allergy Verified 06/08/18 20:37 History of Present Illness: 58 years old male with a long history of alcohol dependence is seeking admission to detox. Patient has been in previous detox and reports 6 months of sobriety. He has medical history of Hep C. (treated ), chronic back pain and anxiety. He denies suicide attempt and suicidal ideation at this time. Exam Limitations: No Limitations - Ebola screening Have you traveled outside of the country in the last 21 days: No Have you had contact with anyone from an Ebola affected area: No Have you been sick,other than usual withdrawal symptoms: No Do you have a fever: No - Review of Systems Constitutional: Chills, Loss of Appetite, Changes in sleep EENT: reports: No Symptoms Reported Respiratory: reports: No Symptoms reported Cardiac: reports: No Symptoms Reported GI: reports: Poor Appetite, Poor Fluid Intake, Vomiting (x 2), Abdominal cramping : reports: No Symptoms Reported Musculoskeletal: reports: Back Pain, Muscle Pain Integumentary: reports: Dryness Neuro: reports: Tremors Endocrine: reports: No Symptoms Reported Hematology: reports: No Symptoms Reported Psychiatric: reports: Anxious, Depressed Other Systems: Reviewed and Negative Patient History - Patient Medical History Hx Anemia: No Hx Asthma: No Hx Chronic Obstructive Pulmonary Disease (COPD): No Hx Cancer: No Hx Cardiac Disorders: No Hx Congestive Heart Failure: No Hx Hypertension: No Hx Hypercholesterolemia: No Hx Pacemaker: No HX Cerebrovascular Accident: No Hx Seizures: No Hx Dementia: No Hx Diabetes: No Hx Gastrointestinal Disorders: No Hx Liver Disease: Yes (Hep C) Hx Genitourinary Disorders: No Hx Sexually Transmitted Disorders: No Hx Renal Disease (ESRD): No Hx Thyroid Disease: No Hx Human Immunodeficiency Virus (HIV): No (Negative 2016) Hx Hepatitis C: Yes (treated 2004- non detectable ) Hx Depression: No Hx Suicide Attempt: No Hx Bipolar Disorder: No Hx Schizophrenia: No Other Medical History: Anxiety and Chronic back pain - Not on Medication - Patient Surgical History Past Surgical History: Yes Hx Abdominal Surgery: Yes (1984- rt hernia repair ) Other Surgical History: 2006- laminectomy - PPD History Previous Implant?: Yes Date: 01/08/17 PPD to be Administered?: Yes - Reproductive History Patient is a Female of Child Bearing Age (11 -55 yrs old): No (Male) - Smoking Cessation Smoking history: Never smoked Have you smoked in the past 12 months: No Aproximately how many cigarettes per day: 0 Cigars Per Day: 0 Hx Chewing Tobacco Use: No Initiated information on smoking cessation: No - Substance & Tx. History Hx Alcohol Use: Yes Hx Substance Use: Yes Substance Use Type: Cocaine Hx Substance Use Treatment: Yes ([facility]) - Substances Abused Alcohol Frequency: Daily Amount used: VODKA 1 QUART Age of first use: 16 Date of Last Use: 06/08/18 Cocaine Frequency: 3-6 times per week Amount used: 2 GRAMS Age of first use: 22 Date of Last Use: 06/08/18 Family Disease History - Family Disease History Family Disease History: Diabetes: Father Admission Physical Exam [facility] - Physical General Appearance: Yes: Moderate Distress HEENTM: Yes: EOMI, Normal ENT Inspection, Normal Voice, JESSICA Respiratory: Yes: Lungs Clear, No Respiratory Distress Neck: Yes: Supple Breast: Yes: Breast Exam Deferred Cardiology: Yes: Regular Rhythm, Regular Rate Abdominal: Yes: Normal Bowel Sounds Back: Yes: Normal Inspection Musculoskeletal: Yes: Within Normal Limits Extremities: Yes: Normal Inspection Neurological: 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 NML intact, Alert Integumentary: Yes: Warm Lymphatic: Yes: Within Normal Limits - Diagnostic (1) Alcohol dependence with uncomplicated withdrawal Current Visit: Yes Status: Chronic (2) Anxiety Current Visit: Yes Status: Chronic (3) Chronic low back pain with left-sided sciatica Current Visit: Yes Status: Chronic Qualifiers: Back pain laterality: left Qualified Code(s): M54.42 - Lumbago with sciatica, left side; G89.29 - Other chronic pain Cleared for Admission [facility] - Detox or Rehab [facility] Level of Care: Medically Managed Detox Regimen/Protocol: Librium S Breath Alcohol Content Breath Alcohol Content: 0.080 Vital Signs - Vital Signs Vital Signs Refused: No Temperature: 98.6 F Temperature Source: Oral Pulse Rate: 83 Respiratory Rate: 16 Blood Pressure: 138/86 BP Location: Right Arm Blood Pressure Position: Sitting - Height Height: 5 ft 6 in - Weight Weight: 160 lb Weight Measurement Method: Standing Scale Body Mass Index (BMI): 25.8 - Bowel Function Bowel Movement: Yes Urine Drug Screen - Results Drug Screen Negative: No Urine Drug Screen Results: PATRICIA-Cocaine
[2018-06-09] MEDS ORDERED: MAGNESIUM HYDROX 2400MG/30ML ORAL SUSPENSION 30 ML CUP PO PRN (05:48)
[2018-06-09] MEDS ORDERED: guaiFENesin/D-METHORPHAN HB 10 ML UNIT-DOSE CUPS PO PRN (05:48)
[2018-06-09] MEDS ORDERED: MAGNESIUM CITRATE 300 ML BOTTLE PO PRN (05:48)
[2018-06-09] MEDS ORDERED: P-EPHED 60MG/TRIPROLIDI 2.5MG TABLET PO PRN (05:48)
[2018-06-09] MEDS ORDERED: chlordiazePOXIDE HCL 25 MG CAPSULE PO PRN (05:48)
[2018-06-09] MEDS ORDERED: ACETAMINOPHEN 325 MG TABLET (FP) PO PRN (05:48)
[2018-06-09] MEDS ORDERED: MENTHOL/PHENOL 1 EACH UD MM PRN (05:48)
[2018-06-09] MEDS ORDERED: IBUPROFEN 400 MG TABLET (FP) PO PRN (05:48)
[2018-06-09] MEDS ORDERED: chlordiazePOXIDE HCL 25 MG CAPSULE PO ONE (05:48)
[2018-06-09] MEDS ORDERED: MAG HYDROX/AL HYDROX/SIMETH 30 ML UNIT-DOSE CUP PO PRN (05:48)
[2018-06-09 05:57] VITALS: BMI 25.8
[2018-06-09] MEDS: chlordiazePOXIDE HCL 25 MG CAPSULE PO SCH ×4 (06:38→22:07)
[2018-06-09] MEDS: GABAPENTIN 300 MG CAPSULE (FP) PO SCH ×3 (07:08→22:07)
[2018-06-09] MEDS ORDERED: predniSONE 10 MG TABLET (UD) PO SCH (10:00)
[2018-06-09] MEDS ORDERED: predniSONE 20 MG TABLET (UD) PO SCH (10:00)
[2018-06-09] MEDS: PRENATAL VITAMINS W/ FOLIC ACID TABLET (FP) PO SCH (10:22)
--- NOTE | 2018-06-09 10:43 | PN ---
S CIWA - CIWA Score Nausea/Vomitin Muscle Tremors: 2 Anxiety: 3 Agitation: 2 Paroxysmal Sweats: 2 Orientation: 0-Oriented Tacttile Disturbances: 2-Mild Itch/Numbness/Burn Auditory Disturbances: 0-None Visual Disturbances: 0-None Headache: 0-None Present CIWA-Ar Total Score: 13 B[facility] Progress Note (SOAP) Subjective: Patient presents with anxiety, shakes, nausea/diarrhea and mild itching to skin/ extremities. Patient went to ER yesterday for allergic rash. Treated with Benadry and Solumedrol. Returned to [facility] earlier this morning to continue detox. Objective: 06/09/18 10:40 Vital Signs Temperature 97.5 F L 06/09/18 09:14 Pulse Rate 88 06/09/18 09:14 Respiratory Rate 19 06/09/18 09:14 Blood Pressure 134/92 06/09/18 09:14 O2 Sat by Pulse Oximetry (%) Skin resolving rash on extremities and trunk, moist car s1s2 resp cta bl gi soft, bs+ ext no edema Assessment: 06/09/18 10:43 withdrawal syndrome s/p allergic rash Plan: continue detox encourage oral fluids adjust prednisone to 20mg today, 15mg tomorrow, 10mg 06/11/18, 5mg 06/12 then d/ c continue to monitor clinically
--- NOTE | 2018-06-09 15:23 | CONSULT ---
[facility] Psychiatric Consult - Data Date of interview: 06/09/18 Admission source: [facility] Identifying data: Patient is a 58 year old single male, father of one, domiciled , and currently unemployed. This is one of multiple admissions for patient. Patient admitted to for alcohol and cocaine dependence. Substance Abuse History: Smoking Cessation. Smoking history: Never smoked. Have you smoked in the past 12 months: No. Aproximately how many cigarettes per day: 0. Cigars Per Day: 0. Hx Chewing Tobacco Use: No. Initiated information on smoking cessation: No. - Substance & Tx. History. Hx Alcohol Use: Yes. Hx Substance Use: Yes. Substance Use Type: Cocaine. Hx Substance Use Treatment: Yes ([facility]). - Substances Abused. Alcohol. Frequency: Daily. Amount used: VODKA 1 QUART. Age of first use: 16. Date of Last Use: . Cocaine. Frequency: 3-6 times per week. Amount used: 2 GRAMS. Age of first use: 22. Date of Last Use: 06/08/18 Medical History: 1985- rt hernia repair, 2006- laminectomy Psychiatric History: Patient denies h/o psychiatric hospitalizations, outpatient care, and suicide attempt. States he has taken trazodone for insomnia when admitted to detox/rehab facilities. Patient reports sleeping well on detox. Physical/Sexual Abuse/Trauma History: denies. Mental Status Exam - Mental Status Exam Alert and Oriented to: Time, Place, Person Cognitive Function: Good Patient Appearance: Well Groomed Mood: Hopeful Affect: Appropriate Patient Behavior: Appropriate, Cooperative Speech Pattern: Appropriate Voice Loudness: Normal Thought Process: Intact, Goal Oriented Thought Disorder: Not Present Hallucinations: Denies Suicidal Ideation: Denies Homicidal Ideation: Denies Insight/Judgement: Poor Sleep: Fair Appetite: Fair Muscle strength/Tone: Normal Gait/Station: Normal Psychiatric Findings - Problem List ([place] 1, 2,3) (1) Alcohol dependence with uncomplicated withdrawal Current Visit: Yes Status: Acute (2) Cocaine dependence Current Visit: No Status: Chronic - Initial Treatment Plan Initial Treatment Plan: Psychoeducation provided. Detoxification in progress. Observation.
[2018-06-09 21:22] LABS: URINE APPEARANCE CLEAR; URINE BILIRUBIN NEGATIVE (<2.0 mg/dL); URINE COLOR YELLOW; URINE GLUCOSE (UA) 3+ (NEGATIVE); URINE KETONE NEGATIVE (NEGATIVE); URINE LEUK ESTERASE NEGATIVE (NEGATIVE); URINE NITRITE NEGATIVE (NEGATIVE); URINE PROTEIN NEGATIVE (NEGATIVE); URINE UROBILINOGEN NEGATIVE mg/dL (0.2-1.0)
[2018-06-09 21:27] LABS: EPI CELLS RARE /HPF (FEW); URINE BACTERIA FEW /hpf (NONE SEEN); URINE MUCUS MODERATE
[2018-06-09] MEDS: THIAMINE HCL 100 MG TABLET (FP) PO SCH (22:06)
[2018-06-09] MEDS: ATORVASTATIN CA 20 MG TABLET (FP) PO SCH (22:07)
[2018-06-09] MEDS: diphenhydrAMINE HCL 25 MG CAPSULE (FP) PO PRN (22:07)
[2018-06-10] MEDS: chlordiazePOXIDE HCL 25 MG CAPSULE PO SCH ×4 (05:06→22:01)
[2018-06-10] MEDS: GABAPENTIN 300 MG CAPSULE (FP) PO SCH ×3 (05:06→22:01)
[2018-06-10] MEDS: diphenhydrAMINE HCL 25 MG CAPSULE (FP) PO PRN ×2 (05:06→17:14)
--- NOTE | 2018-06-10 09:44 | PN ---
[facility] CIWA - CIWA Score Nausea/Vomitin-No Nausea/No Vomiting Muscle Tremors: None Anxiety: 3 Agitation: 4-Moderately Restless Paroxysmal Sweats: 1-Minimal Palms Moist Orientation: 0-Oriented Tacttile Disturbances: 3-Moderate Itch/Numb/Burn Auditory Disturbances: 0-None Visual Disturbances: 0-None Headache: 0-None Present CIWA-Ar Total Score: 11 S Progress Note (SOAP) Subjective: PATIENT C/O ITCHING TO LEGS AND ARMS, ANXIETY, DIFFICULTY SITTING STILL. Objective: 06/10/18 09:40 Vital Signs Temperature 97.2 F L 06/10/18 09:33 Pulse Rate 85 06/10/18 09:33 Respiratory Rate 18 06/10/18 09:33 Blood Pressure 113/76 06/10/18 09:33 O2 Sat by Pulse Oximetry (%) Laboratory Tests 06/09/18 15:41 Urine Color Yellow Urine Appearance Clear Urine pH 6.0 Ur Specific [place] 1.023 Urine Protein Negative Urine Glucose (UA) 3+ H Urine Ketones Negative Urine Blood 1+ H Urine Nitrite Negative Urine Bilirubin Negative Urine Urobilinogen Negative Ur Leukocyte Esterase Negative Urine WBC (Auto) <1 Urine RBC (Auto) 2 Ur Epithelial Cells Rare Urine Bacteria Few Urine Mucus Moderate SKIN WARM AND MOIST, +MACULAR-RED RASH TO ARMS CAR S1S2 RESP CTA BL EXT FULL ROM ALERT AND ORIENTED X 3 +PACING IN HALLWAY Assessment: 06/10/18 09:43 S/P ALLERGIC RASH-RASH LINGERING, CAUSE UNKNOWN WITHDRAWAL SYNDROME Plan: CONTINUE ORAL FLUIDS CONTINUE DETOX HYDROCORTISONE CREAM BID ORDERED CONTINUE BENADRYL AND PREDNISONE TAPER
[2018-06-10] MEDS ORDERED: predniSONE 5 MG TABLET (UD) PO SCH (10:00)
[2018-06-10 10:02] LABS: HEMATOCRIT 40.1 % (35.4-49); HEMOGLOBIN 13.2 GM/dL (11.7-16.9); MCH 29.4 pg (25.7-33.7); MEAN CELL VOLUME 88.9 fl (80-96); MEAN PLT VOLUME 9.1 fl (7.5-11.1); RBC 4.51 M/mm3 (4.00-5.60); RDW 13.4 % (11.9-15.9); WHITE BLOOD COUNT 9.4 K/mm3 (4.0-10.0)
[2018-06-10] MEDS: PRENATAL VITAMINS W/ FOLIC ACID TABLET (FP) PO SCH (10:18)
[2018-06-10] MEDS: AMMONIUM LACTATE 12% LOTION 225 GM BOTTLE TP SCH ×2 (10:35→22:01)
[2018-06-10] MEDS: HYDROCORTISONE 1% TOPICAL CREAM 30 GM TUBE TP SCH ×2 (10:36→22:01)
[2018-06-10 10:44] LABS: ALBUMIN 3.4 g/dl (3.4-5.0); ALK PHOS 104 U/L (45-117); ANION GAP 8 MMOL/L (8-16); BILIRUBIN,TOTAL 0.6 mg/dL (0.2-1); BLOOD UREA NITROGEN 20 mg/dL (7-18); CHLORIDE 103 mmol/L (98-107); CO2 25 mmol/L (21-32); CREATININE 0.5 mg/dL (0.55-1.3); GLUCOSE,RANDOM 96 mg/dL (74-106); POTASSIUM 3.8 mmol/L (3.5-5.1); SGOT/AST 41 U/L (15-37); SGPT/ALT 46 U/L (13-61); SODIUM 136 mmol/L (136-145); TOT PROT 6.6 g/dl (6.4-8.2)
[2018-06-10 12:00] LABS: PLATELET COUNT 182 K/MM3 (134-434)
[2018-06-10] MEDS ORDERED: WITCH HAZEL 50% (TUCKS) 40 PAD/JAR PAD TP PRN (15:43)
[2018-06-10] MEDS: LOPERAMIDE HCL 2 MG CAPSULE PO PRN (17:11)
[2018-06-10] MEDS: WITCH HAZEL 50% (TUCKS) 40 PAD/JAR PAD TP PRN (17:17)
[2018-06-10] MEDS ORDERED: PRAMOXINE HCL/MINERAL OIL/ZNOX 30 GM TUBE RC SCH (22:00)
[2018-06-10] MEDS: THIAMINE HCL 100 MG TABLET (FP) PO SCH (22:01)
[2018-06-10] MEDS: ATORVASTATIN CA 20 MG TABLET (FP) PO SCH (22:01)
[2018-06-10] MEDS: MELATONIN 5 MG TABLETS PO PRN (22:49)
[2018-06-11] MEDS: chlordiazePOXIDE 5 MG CAPSULE PO SCH ×4 (05:11→22:04)
[2018-06-11] MEDS: diphenhydrAMINE HCL 25 MG CAPSULE (FP) PO PRN (05:11)
[2018-06-11] MEDS: GABAPENTIN 300 MG CAPSULE (FP) PO SCH ×3 (05:11→22:05)
[2018-06-11] MEDS ORDERED: predniSONE 10 MG TABLET (UD) PO SCH (10:00)
[2018-06-11] MEDS: PRENATAL VITAMINS W/ FOLIC ACID TABLET (FP) PO SCH (10:04)
[2018-06-11] MEDS: AMMONIUM LACTATE 12% LOTION 225 GM BOTTLE TP SCH ×2 (10:04→22:05)
--- NOTE | 2018-06-11 10:07 | PN ---
BHS Progress Note (SOAP) Subjective: PATIENT CONTINUES WITH DETOX REGIMEN. STATES HE FEELS BETTER BUT STILL HAS ITCHING AND RASH TO THIGHS. Objective: 06/11/18 10:04 Vital Signs Temperature 96.4 F L 06/11/18 10:03 Pulse Rate 82 06/11/18 10:03 Respiratory Rate 18 06/11/18 10:03 Blood Pressure 113/79 06/11/18 10:03 O2 Sat by Pulse Oximetry (%) PE: SKIN WARM AND DRY, +MACULAR-RED RASH TO THIGHS CAR S1S2 RESP CTA BL EXT FULL ROM, NO EDEMA Assessment: 06/11/18 10:06 A/P: RASH WITHDRAWAL SYNDROME Plan: CONTINUE DETOX ENCOURAGE ORAL FLUIDS INCREASE HYDROCORTISONE CREAM TO 2.5% BID CONTINUE TO MONITOR CLINICALLY 06/11/18 10:06
[2018-06-11] MEDS: HYDROCORTISONE 2.5% TOPICAL CREAM 30 GM TUBE TP SCH ×2 (12:00→22:04)
[2018-06-11] MEDS: WITCH HAZEL 50% (TUCKS) 40 PAD/JAR PAD TP PRN (12:29)
[2018-06-11] MEDS ORDERED: diphenhydrAMINE HCL 50 MG CAPSULE PO PRN (17:23)
--- NOTE | 2018-06-11 17:29 | PN ---
[facility] Progress Note (SOAP) Subjective: c/o itching and rash to arms , thighs , abdomen , top of feet , minimal relief w/ current Prednisone , diphenhydramine and hydrocortisone started yesterday . Objective: maculopapular rash judi arms ventral abdomen and dorsum of feet , no d/c , no vesicles no respiratory distress , pt ambulating freely in hallways Vital Signs - 24 hr 06/10/18 06/10/18 06/11/18 18:11 21:08 00:30 Temperature 97.0 F L 97.1 F L Pulse Rate 65 82 Respiratory 18 16 18 Rate Blood Pressure 120/77 115/74 06/11/18 06/11/18 06/11/18 03:30 06:10 06:30 Temperature 96.7 F L Pulse Rate 56 L Respiratory 18 18 18 Rate Blood Pressure 121/74 06/11/18 06/11/18 10:03 13:23 Temperature 96.4 F L 96.8 F L Pulse Rate 82 86 Respiratory 18 18 Rate Blood Pressure 113/79 120/83 06/11/18 17:25 06/11/18 17:28 Assessment: 06/11/18 17:25 allergic reaction to unknown substance Plan: d/w pt at length , pt declined referral to ER advised pt to communicate to nursing if additional worrisome symptoms develop , i.e shortness of breath , wheezing . Pt verbalizes understanding of instructions and agreement . additional dose of Prednisone given today and Diphenhydramine increased to 50 mg q 6 hrs prn agreeable to followup with PCP upon d/c if no improvement.
[2018-06-11] MEDS ORDERED: diphenhydrAMINE HCL 25 MG CAPSULE (FP) PO ONE (17:36)
[2018-06-11] MEDS ORDERED: predniSONE 10 MG TABLET (UD) PO ONE (18:00)
[2018-06-11] MEDS: LOPERAMIDE HCL 2 MG CAPSULE PO PRN (18:44)
[2018-06-11] MEDS: THIAMINE HCL 100 MG TABLET (FP) PO SCH (22:04)
[2018-06-11] MEDS: MELATONIN 5 MG TABLETS PO PRN (22:05)
[2018-06-11] MEDS: ATORVASTATIN CA 20 MG TABLET (FP) PO SCH (22:05)
[2018-06-12] MEDS ORDERED: chlordiazePOXIDE HCL 10 MG CAPSULE PO SCH (05:00)
[2018-06-12] MEDS: GABAPENTIN 300 MG CAPSULE (FP) PO SCH (05:50)
[2018-06-12 06:00] VITALS: BP 130/79; PULSE 57; TEMP 97.1
[2018-06-12] MEDS: HYDROCORTISONE 2.5% TOPICAL CREAM 30 GM TUBE TP SCH (09:08)
[2018-06-12] MEDS: AMMONIUM LACTATE 12% LOTION 225 GM BOTTLE TP SCH (09:08)
[2018-06-12] MEDS: PRENATAL VITAMINS W/ FOLIC ACID TABLET (FP) PO SCH (09:08)
[2018-06-12] MEDS ORDERED: predniSONE 5 MG TABLET (UD) PO SCH (10:00)
--- NOTE | 2018-06-12 11:37 | DS ---
[facility] Detox Discharge Summary Admission Date: 06/09/18 Discharge Date: 06/12/18 - History Present History: Alcohol Dependence - Physical Exam Results Vital Signs: Vital Signs Temperature 97.1 F L 06/12/18 05:59 Pulse Rate 57 L 06/12/18 05:59 Respiratory Rate 18 06/12/18 05:59 Blood Pressure 130/79 06/12/18 05:59 O2 Sat by Pulse Oximetry (%) Pertinent Admission Physical Exam Findings: PATIENT TOLERATED DETOX WELL. D/C TO HOME TODAY. PATIENT TO FOLLOW UP WITH PCP AND AA SPONSOR. PATIENT ENCOURAGED TO ATTEND GROUP MEETINGS TO PREVENT RELAPSE. MEDICALLY STABLE. ALERT AND ORIENTED X 3. RASH/ITCHING RESOLVED WITH TREATMENT. PATIENT AMB AD STEFANO. DENIES SI/HI. PATIENT ADVISED TO SEEK MEDICAL ATTENTION IF WITHDRAWAL SYMPTOMS OCCUR. - Treatment Hospital Course: Detox Protocol Followed, Detoxed Safely, Responded well, Discharged Condition Good, Rehab Referral Accepted Patient has Accepted a Rehab Referral to: AA - Medication Discharge Medications: Ambulatory Orders Diclofenac Sodium [Voltaren] 100 gm TP 06/09/18 Diphenhydramine [Benadryl -] 50 mg NR TID PRN #21 capsule 06/09/18 Prednisone [Prednisone 50 MG TABLETS] 50 mg PO DAILY #4 tab 06/09/18 Atorvastatin Ca [Lipitor] 20 mg PO HS #30 tablet 06/11/18 Gabapentin [Neurontin -] 300 mg PO Q8H #30 capsule 06/11/18 Omeprazole 20 mg PO DAILY #30 tablet. 06/11/18 - Diagnosis (1) Alcohol dependence with uncomplicated withdrawal Status: Resolved (2) Allergic reaction Status: Resolved Qualifiers: Encounter type: subsequent encounter Qualified Code(s): T78.40XD - Allergy , unspecified, subsequent encounter - AMA Did Patient Leave Against Medical Advice: No
== END 2018-06-12 09:14 | disposition home or self-care (01) | DRG 897 ==
LOC: YASAS 04:55 → Y3N 05:01
PROC: HZ2ZZZZ Detoxification Services for Substance Abuse Treatment (ICD-10-PCS; principal; 2018-06-09)
DX: F10.230 Alcohol dependence with withdrawal, uncomplicated (principal); F14.20 Cocaine dependence, uncomplicated; F41.9 Anxiety disorder, unspecified; R21 Rash and other nonspecific skin eruption; T78.40XA Allergy, unspecified, initial encounter; X58.XXXA Exposure to other specified factors, initial encounter; M54.42 Lumbago with sciatica, left side; G89.29 Other chronic pain
CPT/HCPCS: 36415; 80053; 81003; 81015; 85027; 86593; 87389